=== PATIENT | male | born 1970 | race Caucasian/White ===

== ENCOUNTER 2016-11-30 09:21 | Emergency (ER) | payer OTHER ==
[2016-11-30 09:30] VITALS: BP 142/81; PULSE 92; TEMP 98.8; BMI 24.8
[2016-11-30] MEDS ORDERED: AZITHROMYCIN 1 GM PACKET PO ONE (10:03)
--- NOTE | 2016-11-30 10:10 | PDOC ---
History of Present Illness - General Chief Complaint: Penile Drainage Stated Complaint: GENITAL PAIN Time Seen by Provider: 11/30/16 09:44 History Source: Patient Exam Limitations: No Limitations - History of Present Illness Travel History: No Initial Comments: 11/30/16 10:03 46 yr male states he has penile discharge for 2 days and dysuria. Pt states he went to [facility] 2 weeks ago had sex with unknown women. Pt denies medical history or allergies. Past History - Past Medical History Allergies/Adverse Reactions: Allergies Allergy/AdvReac Type Severity Reaction Status Date / Time No Known Allergies Allergy Verified 11/30/16 09:27 Home Medications: Ambulatory Orders NK [No Known Home Medication] 11/30/16 - Psycho/Social/Smoking Cessation Hx Anxiety: No Suicidal Ideation: No Smoking History: Current every day smoker Have you smoked in the past 12 months: Yes Number of Cigarettes Smoked Daily: 10 Information on smoking cessation initiated: No Hx Alcohol Use: No Drug/Substance Use Hx: No Substance Use Type: None Review of Systems - Review of Systems Able to Perform ROS?: Yes Is the patient limited Latvian proficient: No Constitutional: No: Symptoms Reported HEENTM: No: Symptoms Reported Respiratory: No: Symptoms reported, Other Cardiac (ROS): No: Symptoms Reported ABD/GI: No: Symptoms Reported : Yes: Symptoms Reported *Physical Exam - Vital Signs Last Vital Signs Temp Pulse Resp BP Pulse Ox 98.8 F 92 H 18 142/81 100 11/30/16 09:28 11/30/16 09:28 11/30/16 09:28 11/30/16 09:28 11/30/16 09:28 - Physical Exam General Appearance: Yes: Nourished, Appropriately Dressed HEENT: positive: EOMI, SARAH Respiratory/Chest: positive: Lungs Clear, Normal Breath Sounds Cardiovascular: positive: Regular Rhythm, Regular Rate Gastrointestinal/Abdominal: positive: Normal Bowel Sounds, Soft. negative: Tender Male Genitalia: positive: normal genitalia, discharge (clear ). negative: testicular tenderness, testicular mass, epididymus tender Lymphatic: negative: Adenopathy Musculoskeletal: positive: Normal Inspection Extremity: positive: Normal Capillary Refill, Normal Inspection, Normal Range of Motion Neurologic: positive: Fully Oriented, Alert, Normal Mood/Affect, Normal Response , Motor Strength 5/5 Medical Decision Making - Medical Decision Making 11/30/16 10:10 cc: penile discharge dysuria unprotected sexual intercourse 2 weeks ago will check for STD , HIV hepatitis, RPR will treat prophylacticly 11/30/16 11:23 medications given in the ER pt tolerated well *DC/Admit/Observation/Transfer Diagnosis at time of Disposition: Penile discharge - Discharge Dispostion Disposition: HOME Condition at time of disposition: Good - Referrals Referrals: Emiliano Ny MD [Staff Physician] - - Patient Instructions Additional Instructions: follow with the urologist for any worsening symptoms always use condoms during sexual activity you need to avoid any sexual activity for 7 days from today notify any sexual partners you have had in the past month that they need to be tested for STD Siga con el urlogo para cualquier empeoramiento de los sntomas Siempre use condones jose g la actividad sexual Usted necesita evitar cualquier actividad sexual jose g 7 noel a partir de hoy Notifique a cualquier kristen sexual que haya tenido en el ltimo mes que necesite hacerse la prueba de ETS
[2016-11-30 10:11] LABS: URINE APPEARANCE CLEAR; URINE BILIRUBIN NEGATIVE (NEGATIVE); URINE BLOOD NEGATIVE (NEGATIVE); URINE COLOR YELLOW; URINE GLUCOSE (UA) NEGATIVE (NEGATIVE); URINE KETONE NEGATIVE (NEGATIVE); URINE NITRITE NEGATIVE (NEGATIVE); URINE PROTEIN NEGATIVE (NEGATIVE); URINE UROBILINOGEN NEGATIVE E.U./dl (0.2-1.0)
[2016-11-30] MEDS ORDERED: AZITHROMYCIN 1 GM PACKET ONE (10:12)
[2016-11-30 10:16] LABS: URINE LEUK ESTERASE 2+ (NEGATIVE)
[2016-11-30 11:18] LABS: HIV 1 & 2 AB NEGATIVE; HIV 1 AGp24 NEGATIVE
[2016-11-30 11:22] LABS: URINE BACTERIA RARE /hpf (NONE SEEN); URINE MUCUS MANY; URINE RBC 6 /hpf (0-3); URINE WBC 133 /hpf (3-5)
--- NOTE | 2016-12-04 13:27 | PDOC ---
Patient Follow-up (Call Back) - Post ED Follow - Up Condition at time of discharge: Good Disposition at time of original discharge: HOME Reason for Call Back: Abnwl. Lab - Disposition Additional Instructions/Notes: The patient left no phone number to call for test results. I left a message on the Next of Kin's phone for the patient to call back with test results.
--- NOTE | 2016-12-04 18:24 | PDOC ---
Patient Follow-up (Call Back) - Post ED Follow - Up Condition at time of discharge: Good Disposition at time of original discharge: HOME Reason for Call Back: Abnwl. Microbiology - Disposition Additional Instructions/Notes: The patient returned the call from the voicemail I left. He spoke with CHEO Fournier and was instructed to inform all sexual partners of his +gonorrhea results. He was treated empirically in the ER.
== END 2016-11-30 11:40 | disposition home or self-care (01) ==
LOC: JERFT 09:21
DX: R36.9 Urethral discharge, unspecified (principal); F17.210 Nicotine dependence, cigarettes, uncomplicated
CPT/HCPCS: 36415; 81003; 81015; 86593; 86707; 87070; 87205; 87350; 87389; 87491; 87591; 99281-25